=== PATIENT | female | born 1985 | race Caucasian/White ===

== ENCOUNTER 2016-12-17 19:38 | Emergency (ER) | payer MEDICAID ==
[~2016-12-17] VITALS: Ht 157.5 cm; Wt 68.0 kg
[2016-12-17 19:48] VITALS: BP_SYST 124
[2016-12-17] MEDS ORDERED: ALBU8.5H8 INH (20:01)
[2016-12-17 20:20] LABS: BILIRUBIN,URINE NEGATIVE (NEGATIVE); BLOOD, URINE NEGATIVE (NEGATIVE); CLARITY/URINE CLEAR (CLEAR); COLOR,URINE YELLOW (YELLOW); GLUCOSE,URINE NEGATIVE (NEGATIVE); KETONES,URINE NEGATIVE (NEGATIVE); LEUKOCYTE ESTERASE ,URINE 1+ (NEGATIVE); NITRITE, URINE NEGATIVE (NEGATIVE); PROTEIN URINE NEGATIVE (NEGATIVE); UROBILINOGEN,URINE 0.2 (0.2-1.0)
[2016-12-17 20:33] LABS: BACTERIA,URINE FEW /HPF (None Seen); MUCUS,URINE None Seen /LPF (None Seen); RBC,URINE NONE SEEN /HPF (0-3)
[2016-12-17] MEDS ORDERED: NACL 0.9% 1,000 ML IV ONE (20:35)
[2016-12-17] MEDS ORDERED: ONDANSETRON HCL 4 MG/2 ML VIAL IVP ONE (20:45)
[2016-12-17] MEDS ORDERED: MORPHINE 4 MG/ML INJ. SYRINGE IM ONE (20:45)
[2016-12-17 20:59] LABS: BASOPHILS # (AUTO) 0.2 K/uL (0.0-0.2); BASOPHILS % (AUTO) 1.1 % (0.0-2.0); EOSINOPHILS # (AUTO) 0.7 K/uL (0.0-0.4); EOSINOPHILS % (AUTO) 5.1 % (0.0-4.0); HEMATOCRIT 38.2 % (36-48); HEMOGLOBIN 12.8 g/dL (12.0-16.0); LYMPHOCYTES # (AUTO) 2.5 K/uL (1.0-5.5); LYMPHOCYTES % (AUTO) 18.3 % (20.5-51.5); MEAN CORPUSCULAR HEMOGLOBIN 28 pg (27-31); MEAN CORPUSCULAR HGB CONC 33 % (32-36); MEAN CORPUSCULAR VOLUME 85 fL (79.0-98.0); MONOCYTES # (AUTO) 0.7 K/uL (0.0-1.0); MONOCYTES % (AUTO) 4.9 % (1.7-9.3); NEUTROPHILS # (AUTO) 9.6 K/uL (1.8-7.7); NEUTROPHILS % (AUTO) 70.6 % (40.0-70.0); PLATELET COUNT (AUTO) 253 K/uL (130-430); RED CELL DISTRIBUTION WIDTH 13.5 % (9.0-15.0); WHITE BLOOD COUNT (AUTO) 13.7 K/uL (4.8-10.8)
[2016-12-17] MEDS ORDERED: MORPHINE 4 MG/ML INJ. SYRINGE IVP ONE (21:00)
[2016-12-17 21:03] LABS: CALCIUM 8.5 mg/dL (8.4-11.0); CREATININE 0.67 mg/dL (0.55-1.30); POTASSIUM 3.8 mmol/L (3.5-5.1)
[2016-12-17 21:07] LABS: ALBUMIN 3.4 g/dL (3.4-4.8); TOTAL BILIRUBIN 0.3 mg/dL (0.0-1.0); TOTAL PROTEIN, SERUM 6.9 g/dL (6.4-8.3)
[2016-12-17 21:09] LABS: PROTHROMBIN TIME 10.5 SECS (9.5-12.5)
[2016-12-18] MEDS ORDERED: CIPROFLOXACIN HCL 500 MG TABLET PO ONE (00:30)
[2016-12-18 00:54] VITALS: BP_SYST 119
== END 2016-12-18 00:54 | disposition home or self-care (01) ==
LOC: SED 19:38
DX: N83.201 Unspecified ovarian cyst, right side (principal); N39.0 Urinary tract infection, site not specified; J45.909 Unspecified asthma, uncomplicated
CPT/HCPCS: 36415; 76830; 76857; 80053; 81000; 81025; 83690; 85025; 85610; 85730; 87086; 96361; 96374; 96375; 99285; J2270; J2405; J7030; 76856-TC

== ENCOUNTER 2017-04-19 18:59 | Emergency (ER) | payer MEDICAID ==
[~2017-04-19] VITALS: Ht 165.1 cm; Wt 67.1 kg
[~2017-04-19 18:59] MED LIST: ALBU8.5H8 INH
[2017-04-19 19:00] VITALS: BP_SYST 139
[2017-04-19] MEDS ORDERED: NACL 0.9% 1,000 ML IV ONE (19:15)
[2017-04-19] MEDS ORDERED: methylPREDNISolone SOD SUCC/PF 62.5 MG/ML VIAL IVP ONE (19:15)
[2017-04-19] MEDS ORDERED: IPRATROPIUM/ALBUTEROL SULFATE 3 ML AMPUL.NEB INH ONE ×4 (19:15→20:30)
[2017-04-19] MEDS ORDERED: DEXAMETHASONE SOD PHOSPHATE 10 MG/ML VIAL IM ONE (19:15)
[2017-04-19 20:48] VITALS: BP_SYST 130
== END 2017-04-19 20:48 | disposition home or self-care (01) ==
LOC: SED 18:59
DX: J45.901 Unspecified asthma with (acute) exacerbation (principal); R03.0 Elevated blood-pressure reading, without diagnosis of hypertension
CPT/HCPCS: 71010; 81025; 94640; 96361; 96374; 99285; J2930; J7030

== ENCOUNTER 2017-10-03 16:52 | Emergency (ER) | payer MEDICAID ==
[~2017-10-03] VITALS: Ht 165.1 cm; Wt 61.2 kg
[2017-10-03 16:55] VITALS: BP_SYST 123
[2017-10-03] MEDS ORDERED: ALBUTEROL SULFATE 0.083% 2.5 MG/3 ML VIAL.NEB INH ONE ×2 (17:05→17:15)
[2017-10-03] MEDS ORDERED: MAGNESIUM SULFATE 50 ML IV ONE (17:05)
[2017-10-03] MEDS ORDERED: IPRATROPIUM BROM 0.5 MG/2.5 ML VIAL.NEB (ATROVENT) INH ONE ×2 (17:06→17:15)
[2017-10-03] MEDS ORDERED: methylPREDNISolone SOD SUCC/PF 62.5 MG/ML VIAL ONE (17:06)
[2017-10-03] MEDS ORDERED: MAGNESIUM SULFATE 1 GM/2 ML VIAL IVP ONE (17:15)
[2017-10-03] MEDS ORDERED: methylPREDNISolone SOD SUCC/PF 62.5 MG/ML VIAL IVP ONE (17:15)
[2017-10-03] MEDS ORDERED: LevALBUTEROL HCL 1.25 MG/0.5 ML *CONC.* VIAL.NEB (XOPENEX CONC.) INH ONE (18:30)
[2017-10-03 18:55] VITALS: BP_SYST 124
== END 2017-10-03 18:55 | disposition home or self-care (01) ==
LOC: SED 16:52
DX: J45.901 Unspecified asthma with (acute) exacerbation (principal)
CPT/HCPCS: 71045; 81025; 94640; 96365; 96375; 99284; J2930; J3475

== ENCOUNTER 2018-04-18 07:03 | Emergency (ER) | payer MEDICAID ==
[~2018-04-18] VITALS: Ht 165.1 cm; Wt 59.0 kg
[2018-04-18 07:03] VITALS: BP_SYST 122
--- NOTE | 2018-04-18 07:03 | NUR ---
Pt c/o SOB since this AM, audible wheezing, no retractions noted, inhaler non-effective. SPO2 98% RA. Pt states she experiences asthma attacks on average every three months. Triggers of event unknown.
--- NOTE | 2018-04-18 07:03 | NUR ---
Pt placed in bed 6
--- NOTE | 2018-04-18 07:10 | NUR ---
ER at bedside examining patient.
[2018-04-18] MEDS ORDERED: IPRATROPIUM BROM 0.5 MG/2.5 ML VIAL.NEB (ATROVENT) IH ONE (07:15)
[2018-04-18] MEDS ORDERED: ALBUTEROL SULFATE 0.083% 2.5 MG/3 ML VIAL.NEB IH ONE (07:15)
[2018-04-18] MEDS ORDERED: PREDNISONE 20 MG TABLET PO ONE (07:15)
--- NOTE | 2018-04-18 07:15 | NUR ---
RT at bedside.
--- NOTE | 2018-04-18 07:40 | NUR ---
No improvement in SOB or wheezing. Dr. Villanueva made aware.
--- NOTE | 2018-04-18 09:00 | NUR ---
Verbalizes improvement in work of breathing. No needs verbalized at this.
[2018-04-18 10:00] VITALS: BP_SYST 120
--- NOTE | 2018-04-18 10:00 | NUR ---
Patient given written and verbal discharge instructions and verbalizes understanding. ER MD discussed with patient the results and treatment provided. Patient in stable condition. ID arm band removed. Rx of Medrol Dosepak given. Patient educated on pain management and to follow up with PMD. Pain Scale 0/10. Opportunity for questions provided and answered. Medication side effect fact sheet provided.
== END 2018-04-18 10:00 | disposition home or self-care (01) ==
LOC: SED 07:03
DX: J45.909 Unspecified asthma, uncomplicated (principal)
CPT/HCPCS: 94640; 99283; J7512; J7613

== ENCOUNTER 2018-05-27 22:25 | Emergency (ER) | payer MEDICAID ==
[~2018-05-27] VITALS: Ht 162.6 cm; Wt 68.0 kg
[2018-05-27 22:35] VITALS: BP_SYST 129
--- NOTE | 2018-05-27 22:35 | NUR ---
Placed in room 5 . Placed on pulse oximeter. To gown for exam. Side rails up.
--- NOTE | 2018-05-27 22:42 | NUR ---
Patient AOx4, ambulatory, presents to ER with complaint of SOB since [id number] today. Patient has hx of asthma. Patient states cold symptoms x1 week causing exacerbation of her asthma. Patient also states CRUMP and pressure to bilateral eyes. Medicated with Albuterol and Mucinex without relief. No other symptoms or complaints. O2 sat 97% RA on arrival.
--- NOTE | 2018-05-27 22:44 | NUR ---
ER Dr. Jim at bedside examining patient.
--- NOTE | 2018-05-27 22:54 | NUR ---
RT at bedside administering breathing treatment. Pt tolerated well.
--- NOTE | 2018-05-27 22:57 | NUR ---
Medication was given, pt tolerated well. No adverse reaction, will continue to monitor.
[2018-05-27] MEDS ORDERED: PREDNISONE 20 MG TABLET PO ONE (23:00)
[2018-05-27] MEDS ORDERED: LevALBUTEROL HCL 1.25 MG/0.5 ML *CONC.* VIAL.NEB (XOPENEX CONC.) INH ONE ×2 (23:00→23:45)
[2018-05-27] MEDS ORDERED: IPRATROPIUM BROM 0.5 MG/2.5 ML VIAL.NEB (ATROVENT) IH ONE (23:00)
[2018-05-28 00:53] VITALS: BP_SYST 122
--- NOTE | 2018-05-28 00:53 | NUR ---
Patient given written and verbal discharge instructions and verbalizes understanding. ER MD discussed with patient the results and treatment provided. Patient in stable condition. ID arm band removed. Rx of Ventolin and Prednisone given. Patient educated on pain management and to follow up with PMD. Pain Scale 0/10. Opportunity for questions provided and answered. Medication side effect fact sheet provided.
== END 2018-05-28 00:53 | disposition home or self-care (01) ==
LOC: SED 22:25
DX: J45.909 Unspecified asthma, uncomplicated (principal); R03.0 Elevated blood-pressure reading, without diagnosis of hypertension
CPT/HCPCS: 94640; 99284; J7512; J7612

== ENCOUNTER 2018-11-02 16:15 | Emergency (ER) | payer MEDICAID ==
[~2018-11-02] VITALS: Ht 162.6 cm; Wt 78.0 kg
[2018-11-02 16:15] VITALS: BP_SYST 122
[2018-11-02] MEDS ORDERED: NACL 0.9% 1,000 ML IV ONE (17:30)
[2018-11-02] MEDS ORDERED: KETOROLAC TROMETHAMINE 30 MG VIAL IVP ONE (17:30)
[2018-11-02] MEDS ORDERED: ONDANSETRON HCL 4 MG/2 ML VIAL IVP ONE (17:30)
[2018-11-02 19:15] VITALS: BP_SYST 132
== END 2018-11-02 19:15 | disposition home or self-care (01) ==
LOC: SED 16:15
DX: N83.202 Unspecified ovarian cyst, left side (principal); N83.201 Unspecified ovarian cyst, right side; J45.909 Unspecified asthma, uncomplicated; R03.0 Elevated blood-pressure reading, without diagnosis of hypertension
CPT/HCPCS: 76830; 76857; 81002; 81025; 96374; 96375; 99284; J1885; J2405; J7030

== ENCOUNTER 2019-04-27 18:44 | Emergency (ER) | payer MEDICAID ==
[~2019-04-27] VITALS: Ht 162.6 cm; Wt 68.0 kg
[2019-04-27 18:52] VITALS: BP_SYST 152
--- NOTE | 2019-04-27 18:52 | NUR ---
Patient to ER bed 1 to gown for evaluation. Side rails up. RT called for breathing treatment.
[2019-04-27] MEDS ORDERED: IPRATROPIUM/ALBUTEROL SULFATE 3 ML AMPUL.NEB (DUONEB) INH ONE ×2 (19:00→19:30)
[2019-04-27] MEDS ORDERED: IBUPROFEN 600 MG TABLET PO ONE (19:00)
[2019-04-27] MEDS ORDERED: methylPREDNISolone SOD SUCC/PF 62.5 MG/ML VIAL IM ONE ×2 (19:00→20:45)
--- NOTE | 2019-04-27 19:00 | NUR ---
Pt c/o SOB with Chest Pain and headache with sudden onset prior to arrival. BBS diminished with expiratory wheezing and increased work of breathing noted. SPO2 87% RA. Dr. Cm aware.
--- NOTE | 2019-04-27 19:02 | NUR ---
Dr. Cm at bedside.
--- NOTE | 2019-04-27 19:10 | NUR ---
RT at bedside to give neb tx.
--- NOTE | 2019-04-27 19:15 | NUR ---
Unable to access pyxis to obtain medications for pt. Medication to be retrieved from another pyxis.
--- NOTE | 2019-04-27 19:35 | NUR ---
RT at bedside to give second neb tx.
--- NOTE | 2019-04-27 20:30 | NUR ---
Medication received from rn house supervisor.
[2019-04-27] MEDS ORDERED: methylPREDNISolone SOD SUCC/PF 62.5 MG/ML VIAL ONE (20:41)
[2019-04-27] MEDS ORDERED: IBUPROFEN 600 MG TABLET ONE (20:42)
--- NOTE | 2019-04-27 20:50 | NUR ---
Improvement to work of breathing and BBS. No respiratory distress. SPO2 98% RA.
[2019-04-27 21:05] VITALS: BP_SYST 111
--- NOTE | 2019-04-27 21:05 | NUR ---
Patient given written and verbal discharge instructions and verbalizes understanding. ER MD discussed with patient the results and treatment provided. Patient in stable condition. ID arm band removed. Rx of Zithromax, Prednisone, Albuterol given. Patient educated on pain management and to follow up with PMD. Pain Scale 1/10. Opportunity for questions provided and answered. Medication side effect fact sheet provided.
== END 2019-04-27 21:05 | disposition home or self-care (01) ==
LOC: SED 18:44
DX: J45.901 Unspecified asthma with (acute) exacerbation (principal)
CPT/HCPCS: 93005; 94640; 96372; 99284; J2930; J7620

== ENCOUNTER 2019-07-03 23:06 | Emergency (ER) | payer MEDICAID ==
[~2019-07-03] VITALS: Ht 162.6 cm; Wt 68.0 kg
[2019-07-03 23:10] VITALS: BP_SYST 114
--- NOTE | 2019-07-03 23:20 | NUR ---
Placed in room 7 . Placed on baker test, blood pressure machine and pulse oximeter. To gown for exam. Side rails up. Report given to Kumar RODRIGUEZ.
--- NOTE | 2019-07-03 23:22 | NUR ---
34 y/o female presents to Ed w/ c/o SOB. Pt has Hx of asthma, states she used her inhaler today with no relief. Pt denies any fever, N/V, chills, bodyaches. Pt states pain of 5/10 in chest d/t difficulty breathing. Will continue to monitor.
--- NOTE | 2019-07-03 23:25 | NUR ---
ER at bedside examining patient.
[2019-07-03] MEDS ORDERED: ALBUTEROL SULFATE 0.083% 2.5 MG/3 ML VIAL.NEB INH ONE (23:30)
[2019-07-03] MEDS ORDERED: IPRATROPIUM BROM 0.5 MG/2.5 ML VIAL.NEB (ATROVENT) INH ONE (23:30)
[2019-07-03] MEDS ORDERED: PREDNISONE 20 MG TABLET PO ONE (23:30)
[2019-07-04] MEDS ORDERED: ALBUTEROL SULFATE 0.083% 2.5 MG/3 ML VIAL.NEB INH ONE (00:15)
[2019-07-04] MEDS ORDERED: IPRATROPIUM BROM 0.5 MG/2.5 ML VIAL.NEB (ATROVENT) INH ONE (00:15)
[2019-07-04] MEDS ORDERED: KETOROLAC TROMETHAMINE 60 MG/2 ML VIAL IM ONE (00:30)
--- NOTE | 2019-07-04 00:46 | NUR ---
Urine HCG done, results NEGATIVE.
[2019-07-04 00:58] VITALS: BP_SYST 124
--- NOTE | 2019-07-04 00:58 | NUR ---
Patient given written and verbal discharge instructions and verbalizes understanding. ER MD discussed with patient the results and treatment provided. Patient in stable condition. ID arm band removed. IV catheter removed intact and dressing applied, no active bleeding. Rx of Albuterol, Prednisone, and Motrin given. Patient educated on pain management and to follow up with PMD. Pain Scale 0/10. Opportunity for questions provided and answered. Medication side effect fact sheet provided.
== END 2019-07-04 00:58 | disposition home or self-care (01) ==
LOC: SED 23:06
DX: J45.909 Unspecified asthma, uncomplicated (principal); N80.9 Endometriosis, unspecified
CPT/HCPCS: 81025; 94640 ×2; 96372; 99284; J1885; J7512; J7613 ×2

== ENCOUNTER 2019-07-31 21:29 | Emergency (ER) | payer MEDICAID ==
[~2019-07-31] VITALS: Ht 152.4 cm; Wt 68.0 kg
[2019-07-31 21:35] VITALS: BP_SYST 120
[2019-07-31] MEDS: IPRATROPIUM BROM 0.5 MG/2.5 ML VIAL.NEB (ATROVENT) INH ONE (23:40)
[2019-07-31] MEDS: LevALBUTEROL HCL 1.25 MG/0.5 ML *CONC.* VIAL.NEB (XOPENEX CONC.) INH ONE (23:40)
[2019-07-31] MEDS ORDERED: MAGNESIUM SULFATE 1 GM/2 ML VIAL ONE (23:53)
[2019-07-31] MEDS: methylPREDNISolone SOD SUCC/PF 62.5 MG/ML VIAL IVP ONE (23:54)
[2019-07-31] MEDS: MAGNESIUM SULFATE 1 GM in NS 50 ML IV ONE (23:55)
[2019-07-31] MEDS: NACL 0.9% 1,000 ML IV ONE (23:56)
[2019-08-01] MEDS: LevALBUTEROL HCL 1.25 MG/0.5 ML *CONC.* VIAL.NEB (XOPENEX CONC.) INH ONE (00:35)
[2019-08-01 00:37] LABS: HEMOGLOBIN 14.1 g/dL (12.0-16.0); MEAN CORPUSCULAR HEMOGLOBIN 28 pg (27-31); MEAN CORPUSCULAR HGB CONC 33 % (32-36); MEAN CORPUSCULAR VOLUME 87 fL (79.0-98.0); PLATELET COUNT (AUTO) 325 K/uL (130-430); RED BLOOD CELL COUNT(AUTO) 4.96 MIL/uL (4.2-6.2); RED CELL DISTRIBUTION WIDTH 14.2 % (9.0-15.0); WHITE BLOOD COUNT (AUTO) 13.3 K/uL (4.8-10.8)
[2019-08-01 00:54] LABS: CALCIUM 8.9 mg/dL (8.4-11.0); CREATININE 0.67 mg/dL (0.55-1.30); POTASSIUM 3.8 mmol/L (3.5-5.1)
[2019-08-01 00:59] LABS: ALBUMIN 3.9 g/dL (3.4-4.8); TOTAL BILIRUBIN 0.2 mg/dL (0.0-1.0)
[2019-08-01 01:11] LABS: ATYPICAL LYMPHOCYTES % 0 % (0-0); BAND % (MANUAL) 1 % (0-6); LYMPHOCYTES % (MANUAL) 21 % (20-46); MONOCYTES % (MANUAL) 7 % (0-11)
[2019-08-01 01:12] LABS: BASOPHILS % (MANUAL) 0 % (0-2); EOSINOPHILS % (MANUAL) 16 % (0-7); METAMYELOCYTES % 0 % (0-0)
[2019-08-01 01:47] LABS: BILIRUBIN,URINE NEGATIVE (NEGATIVE); BLOOD, URINE NEGATIVE (NEGATIVE); CLARITY/URINE CLEAR (CLEAR); COLOR,URINE YELLOW (YELLOW); GLUCOSE,URINE NEGATIVE (NEGATIVE); KETONES,URINE NEGATIVE (NEGATIVE); LEUKOCYTE ESTERASE ,URINE TRACE (NEGATIVE); NITRITE, URINE NEGATIVE (NEGATIVE); PROTEIN URINE NEGATIVE (NEGATIVE); UROBILINOGEN,URINE 0.2 (0.2-1.0)
[2019-08-01 01:55] LABS: BACTERIA,URINE FEW /HPF (None Seen); RBC,URINE 0-3 /HPF (0-3); WBC,URINE 0-3 /HPF (0-3)
[2019-08-01 02:01] VITALS: BP_SYST 118
== END 2019-08-01 02:01 | disposition home or self-care (01) ==
LOC: SED 21:29
DX: J45.901 Unspecified asthma with (acute) exacerbation (principal)
CPT/HCPCS: 36415; 71046; 80053; 81000; 83690; 85007; 85027; 94640 ×2; 96365; 96375; 99284; J2930; J3475; J7030; J7612 ×2

== ENCOUNTER 2020-02-17 20:16 | Emergency (ER) | payer MEDICAID ==
[~2020-02-17] VITALS: Ht 162.6 cm; Wt 77.1 kg
[2020-02-17 20:25] VITALS: BP_SYST 116
[2020-02-17] MEDS ORDERED: methylPREDNISolone SOD SUCC/PF 62.5 MG/ML VIAL IM ONE (20:45)
[2020-02-17] MEDS ORDERED: IPRATROPIUM/ALBUTEROL SULFATE 3 ML AMPUL.NEB (DUONEB) INH ONE ×2 (20:45→21:00)
[2020-02-17] MEDS ORDERED: IPRATROPIUM/ALBUTEROL SULFATE 3 ML AMPUL.NEB (DUONEB) ONE (21:11)
[2020-02-17] MEDS ORDERED: ALBUTEROL SULFATE 0.083% 2.5 MG/3 ML VIAL.NEB INH ONE (21:15)
[2020-02-17] MEDS ORDERED: BUDESONIDE 0.5 MG/2 ML AMPUL.NEB INH ONE (21:15)
[2020-02-17 22:32] VITALS: BP_SYST 116
== END 2020-02-17 22:32 | disposition home or self-care (01) ==
LOC: SED 20:16
DX: J45.901 Unspecified asthma with (acute) exacerbation (principal)
CPT/HCPCS: 94640; 96372; 99285; J2930; J7613; J7626

== ENCOUNTER 2020-05-16 14:03 | Emergency (ER) | payer MEDICAID ==
[~2020-05-16] VITALS: Ht 162.6 cm; Wt 72.6 kg
[2020-05-16 14:19] VITALS: BP_SYST 125
--- NOTE | 2020-05-16 14:30 | NUR ---
Pt walked in to ER with c/o SOB and wheezing. Reports h/o asthma. O2 sat 92% on RA. V/S stable, pt is afebrile. Currently resting in bed, will continue to monitor.
--- NOTE | 2020-05-16 14:30 | NUR ---
AMBULATED TO BED 4
--- NOTE | 2020-05-16 14:35 | NUR ---
ER Dr. Mcneill at bedside examining patient.
--- NOTE | 2020-05-16 14:35 | NUR ---
Nasal swab obtained to r/o covid, Sample sent to lab, pt tolerated well.
[2020-05-16] MEDS ORDERED: IPRATROPIUM/ALBUTEROL SULFATE 3 ML AMPUL.NEB (DUONEB) ONE (14:38)
[2020-05-16] MEDS ORDERED: methylPREDNISolone SOD SUCC/PF 62.5 MG/ML VIAL IM ONE (14:45)
[2020-05-16] MEDS ORDERED: IPRATROPIUM/ALBUTEROL SULFATE 3 ML AMPUL.NEB (DUONEB) INH ONE ×3 (14:45→15:30)
--- NOTE | 2020-05-16 14:55 | NUR ---
Respiratory at bedside for breathing treatment
[2020-05-16 16:22] VITALS: BP_SYST 124
--- NOTE | 2020-05-16 16:23 | NUR ---
Patient given written and verbal discharge instructions and verbalizes understanding. ER MD discussed with patient the results and treatment provided. Patient in stable condition. ID arm band removed. Rx of ALBUTEROL & PREDNISONE given. Patient educated on pain management and to follow up with PMD. Pain Scale 0/10 . Opportunity for questions provided and answered. Medication side effect fact sheet provided.
== END 2020-05-16 16:22 | disposition home or self-care (01) ==
LOC: SED 14:03
DX: J45.901 Unspecified asthma with (acute) exacerbation (principal); Z20.828 Contact with and (suspected) exposure to other viral communicable diseases
CPT/HCPCS: 36415; 94640; 96372; 99285; J2930

== ENCOUNTER 2020-09-07 20:57 | Emergency (ER) | payer MEDICAID, SELFPAY ==
[~2020-09-07] VITALS: Ht 162.6 cm; Wt 76.2 kg
[2020-09-07 21:10] VITALS: BP_SYST 152
--- NOTE | 2020-09-07 21:26 | NUR ---
Seen and examined by Dr. MCKEON, ER Attending
[2020-09-07] MEDS ORDERED: MECLIZINE HCL 25 MG TABLET (ANITVERT) PO ONE (21:30)
[2020-09-07] MEDS ORDERED: METOCLOPRAMIDE HCL 10 MG/2 ML VIAL IVP ONE (21:30)
--- NOTE | 2020-09-07 21:32 | NUR ---
Pt ambulatory to bed 8 for evaluation
--- NOTE | 2020-09-07 21:33 | NUR ---
Came in ER this 35 year old female ambulatory, AAOX4, breathig spontaneously at room air, not in distress noted. With chief complaints of dizziness and headache today, medically and surgically free. no known allergy. initial vital signs stable
--- NOTE | 2020-09-07 21:45 | NUR ---
# 20 gauge angiocath placed to left hand. Use of asceptic technique. Opsite placed over site. Blood return noted. Flushed with 10 cc of normal saline. No evidence of infiltration noted. Patient tolerated well.
[2020-09-07 21:50] LABS: BASOPHILS # (AUTO) 0.1 K/uL (0.0-0.2); BASOPHILS % (AUTO) 0.5 % (0.0-2.0); EOSINOPHILS # (AUTO) 0.7 K/uL (0.0-0.4); EOSINOPHILS % (AUTO) 7.2 % (0.0-4.0); HEMATOCRIT 39.5 % (36-48); HEMOGLOBIN 13.1 g/dL (12.0-16.0); LYMPHOCYTES # (AUTO) 3.7 K/uL (1.0-5.5); LYMPHOCYTES % (AUTO) 36.8 % (20.5-51.5); MEAN CORPUSCULAR HEMOGLOBIN 28 pg (27-31); MEAN CORPUSCULAR HGB CONC 33 % (32-36); MEAN CORPUSCULAR VOLUME 86 fL (79.0-98.0); MONOCYTES # (AUTO) 0.7 K/uL (0.0-1.0); MONOCYTES % (AUTO) 7.1 % (1.7-9.3); NEUTROPHILS # (AUTO) 4.8 K/uL (1.8-7.7); NEUTROPHILS % (AUTO) 48.4 % (40.0-70.0); PLATELET COUNT (AUTO) 288 K/uL (130-430); RED BLOOD CELL COUNT(AUTO) 4.59 MIL/uL (4.2-6.2); RED CELL DISTRIBUTION WIDTH 13.9 % (9.0-15.0); WHITE BLOOD COUNT (AUTO) 9.9 K/uL (4.8-10.8)
[2020-09-07 21:50] LABS: BILIRUBIN,URINE NEGATIVE (NEGATIVE); BLOOD, URINE 2+ (NEGATIVE); COLOR,URINE YELLOW (YELLOW); GLUCOSE,URINE NEGATIVE (NEGATIVE); KETONES,URINE NEGATIVE (NEGATIVE); LEUKOCYTE ESTERASE ,URINE 3+ (NEGATIVE); NITRITE, URINE NEGATIVE (NEGATIVE); PROTEIN URINE NEGATIVE (NEGATIVE); UROBILINOGEN,URINE 0.2 (0.2-1.0)
[2020-09-07 22:06] LABS: CALCIUM 8.9 mg/dL (8.4-11.0); CREATININE 0.66 mg/dL (0.55-1.30); POTASSIUM 3.4 mmol/L (3.5-5.1)
--- NOTE | 2020-09-07 22:08 | NUR ---
To CT Scan department per wheelchair in stable condition
[2020-09-07 22:09] LABS: PROTHROMBIN TIME 10.3 SECS (9.5-12.5)
[2020-09-07 22:09] LABS: CLARITY/URINE HAZY (CLEAR)
--- NOTE | 2020-09-07 22:21 | NUR ---
Back to room, kept comfortable
[2020-09-07 22:28] LABS: ALBUMIN 3.7 g/dL (3.4-4.8); TOTAL BILIRUBIN 0.2 mg/dL (0.0-1.0)
[2020-09-07 22:50] LABS: WBC,URINE 20-50 /HPF (0-3)
[2020-09-07 22:51] LABS: BACTERIA,URINE FEW /HPF (None Seen)
[2020-09-07] MEDS ORDERED: MECL-97 PO (23:18)
--- NOTE | 2020-09-07 23:25 | NUR ---
Re-assesed by Dr. Rubio, blood works, Ct scan, chest xray reviewed, for discharge
[2020-09-07 23:53] VITALS: BP_SYST 112
--- NOTE | 2020-09-07 23:53 | NUR ---
Patient given written and verbal discharge instructions and verbalizes understanding. ER MD discussed with patient the results and treatment provided. Patient in stable condition. ID arm band removed. IV catheter removed intact and dressing applied, no active bleeding. Rx of given. Patient educated on pain management and to follow up with PMD. Pain Scale 0/10. Opportunity for questions provided and answered. Medication side effect fact sheet provided.
== END 2020-09-07 23:53 | disposition home or self-care (01) ==
LOC: SED 20:57
DX: R42 Dizziness and giddiness (principal); J45.909 Unspecified asthma, uncomplicated; Z86.2 Personal history of diseases of the blood and blood-forming organs and certain disorders involving the immune mechanism
CPT/HCPCS: 36415; 70450; 71045; 76376; 80053; 81000; 81025; 84484; 85025; 85610; 85730; 87086; 93005; 96374; 99285; J2765; J8597

== ENCOUNTER 2021-01-29 10:39 | Emergency (ER) | payer MEDICAID, SELFPAY ==
[~2021-01-29] VITALS: Ht 162.6 cm; Wt 77.1 kg
[~2021-01-29 10:39] MED LIST changes: +MECL-103 PO
[2021-01-29 10:40] VITALS: BP_SYST 103
[2021-01-29 12:52] LABS: BASOPHILS # (AUTO) 0.1 K/uL (0.0-0.2); BASOPHILS % (AUTO) 0.6 % (0.0-2.0); EOSINOPHILS # (AUTO) 1.1 K/uL (0.0-0.4); EOSINOPHILS % (AUTO) 10.3 % (0.0-4.0); HEMATOCRIT 40.1 % (36-48); HEMOGLOBIN 13.7 g/dL (12.0-16.0); LYMPHOCYTES # (AUTO) 2.7 K/uL (1.0-5.5); LYMPHOCYTES % (AUTO) 24.4 % (20.5-51.5); MEAN CORPUSCULAR HEMOGLOBIN 30 pg (27-31); MEAN CORPUSCULAR HGB CONC 34 % (32-36); MEAN CORPUSCULAR VOLUME 88 fL (79.0-98.0); MONOCYTES # (AUTO) 0.5 K/uL (0.0-1.0); MONOCYTES % (AUTO) 4.5 % (1.7-9.3); NEUTROPHILS # (AUTO) 6.7 K/uL (1.8-7.7); NEUTROPHILS % (AUTO) 60.2 % (40.0-70.0); PLATELET COUNT (AUTO) 255 K/uL (130-430); RED BLOOD CELL COUNT(AUTO) 4.56 MIL/uL (4.2-6.2); RED CELL DISTRIBUTION WIDTH 12.6 % (9.0-15.0); WHITE BLOOD COUNT (AUTO) 11.1 K/uL (4.8-10.8)
[2021-01-29 13:07] LABS: CALCIUM 9.1 mg/dL (8.4-11.0); CREATININE 0.65 mg/dL (0.55-1.30); POTASSIUM 3.6 mmol/L (3.5-5.1)
[2021-01-29 13:18] LABS: ALBUMIN 3.5 g/dL (3.4-4.8); TOTAL BILIRUBIN 0.3 mg/dL (0.0-1.0)
== END 2021-01-29 14:35 | disposition home or self-care (01) ==
LOC: SED 10:39
DX: O26.891 Other specified pregnancy related conditions, first trimester (principal); R10.32 Left lower quadrant pain; J45.909 Unspecified asthma, uncomplicated; Z3A.01 Less than 8 weeks gestation of pregnancy; Z79.899 Other long term (current) drug therapy
CPT/HCPCS: 36415; 76805-TC; 80053; 84702; 85025; 99284

== ENCOUNTER 2021-02-19 14:27 | Emergency (ER) | payer MEDICAID ==
[~2021-02-19] VITALS: Ht 162.6 cm; Wt 72.6 kg
[2021-02-19 14:40] VITALS: BP_SYST 109
[2021-02-19] MEDS ORDERED: ONDANSETRON HCL 4 MG/2 ML VIAL IVP ONE (14:45)
[2021-02-19] MEDS ORDERED: NACL 0.9% 1,000 ML IV ONE (14:45)
--- NOTE | 2021-02-19 14:46 | NUR ---
CARRILLO Vergara examining THE patient.
--- NOTE | 2021-02-19 14:46 | NUR ---
KENDALL AND SKED TO WAIT IN THE WAITING ROOM
--- NOTE | 2021-02-19 15:21 | NUR ---
Patient to ER bed 8 to gown for evaluation. Side rails up. Report given to JOLLY RODRIGUEZ.
--- NOTE | 2021-02-19 15:26 | NUR ---
PT IS CURRENTLY IN US
--- NOTE | 2021-02-19 15:30 | NUR ---
Pt walked in to ER with c/o vaginal bleeding x1 day. Reports being approx 8 weeks . Denies any n/v, pain or cramping. V/S stable, no acute distress noted.
[2021-02-19 16:32] LABS: BASOPHILS % (AUTO) 0.4 % (0.0-2.0); EOSINOPHILS # (AUTO) 0.8 K/uL (0.0-0.4); EOSINOPHILS % (AUTO) 7.6 % (0.0-4.0); HEMOGLOBIN 13.8 g/dL (12.0-16.0); LYMPHOCYTES # (AUTO) 2.2 K/uL (1.0-5.5); LYMPHOCYTES % (AUTO) 21.3 % (20.5-51.5); MEAN CORPUSCULAR HEMOGLOBIN 30 pg (27-31); MEAN CORPUSCULAR HGB CONC 34 % (32-36); MEAN CORPUSCULAR VOLUME 87 fL (79.0-98.0); MONOCYTES # (AUTO) 0.7 K/uL (0.0-1.0); MONOCYTES % (AUTO) 6.3 % (1.7-9.3); NEUTROPHILS # (AUTO) 6.7 K/uL (1.8-7.7); NEUTROPHILS % (AUTO) 64.4 % (40.0-70.0); PLATELET COUNT (AUTO) 284 K/uL (130-430); RED CELL DISTRIBUTION WIDTH 12.2 % (9.0-15.0); WHITE BLOOD COUNT (AUTO) 10.5 K/uL (4.8-10.8)
[2021-02-19 16:38] LABS: CREATININE 0.78 mg/dL (0.55-1.30); POTASSIUM 3.7 mmol/L (3.5-5.1)
--- NOTE | 2021-02-19 17:03 | NUR ---
Patient given written and verbal discharge instructions and verbalizes understanding. ER MD discussed with patient the results and treatment provided. Patient in stable condition. ID arm band removed. IV catheter removed intact and dressing applied, no active bleeding. No prescriptions given. Patient educated on pain management and to follow up with PMD. Pain Scale 0. Opportunity for questions provided and answered. Medication side effect fact sheet provided.
[2021-02-19 17:04] VITALS: BP_SYST 109
[2021-02-19 17:04] LABS: ALBUMIN 3.3 g/dL (3.4-4.8); TOTAL BILIRUBIN 0.2 mg/dL (0.0-1.0)
[2021-02-19 17:09] LABS: BILIRUBIN,URINE NEGATIVE (NEGATIVE); BLOOD, URINE 3+ (NEGATIVE); CLARITY/URINE CLEAR (CLEAR); COLOR,URINE YELLOW (YELLOW); GLUCOSE,URINE NEGATIVE (NEGATIVE); KETONES,URINE TRACE (NEGATIVE); LEUKOCYTE ESTERASE ,URINE 1+ (NEGATIVE); NITRITE, URINE NEGATIVE (NEGATIVE); PROTEIN URINE NEGATIVE (NEGATIVE)
[2021-02-19 17:17] LABS: BACTERIA,URINE FEW /HPF (None Seen); MUCUS,URINE None Seen /LPF (None Seen)
[2021-02-19 17:18] LABS: CALCIUM OXALATE CRYSTALS,UR 0-10 /HPF (None Seen)
== END 2021-02-19 17:03 | disposition home or self-care (01) ==
LOC: SED 14:27
DX: O20.9 Hemorrhage in early pregnancy, unspecified (principal); J45.909 Unspecified asthma, uncomplicated; Z79.899 Other long term (current) drug therapy; Z3A.01 Less than 8 weeks gestation of pregnancy
CPT/HCPCS: 36415; 76801; 76817; 80053; 81000; 84702; 85025; 87086; 96361; 96374; 99284; J2405; J7030

== ENCOUNTER 2021-05-21 22:56 | Emergency (ER) | payer MEDICAID ==
[~2021-05-21] VITALS: Ht 165.1 cm; Wt 90.7 kg
--- NOTE | 2021-05-21 23:00 | NUR ---
Dr. Henderson at bedside.
[2021-05-21 23:02] VITALS: BP_SYST 120
--- NOTE | 2021-05-21 23:04 | NUR ---
Patient to ER bed H2 to gown for evaluation. Side rails up. RT notified Report given to Madyson RODRIGUEZ
[2021-05-21] MEDS ORDERED: IPRATROPIUM/ALBUTEROL SULFATE 3 ML AMPUL.NEB (DUONEB) INH ONE (23:30)
[2021-05-21] MEDS ORDERED: predniSONE 20 MG TABLET PO ONE (23:30)
--- NOTE | 2021-05-21 23:34 | NUR ---
Breathing treatment done by RT
--- NOTE | 2021-05-22 01:01 | NUR ---
PT LYING IN BED WITH EYES CLOSED, APPEARS TO BE ASLEEP. EQUAL RISE AND FALL OF CHEST. O2 SAT 97% ON ROOM AIR. NO ACUTE DISTRESS AT THIS TIME. WILL COTINUE TO MONITOR.
[2021-05-22] MEDS ORDERED: PRED20TA PO (01:35)
[2021-05-22] MEDS ORDERED: ALBMDI INH (01:35)
[2021-05-22] MEDS ORDERED: ALBU2.5V7 INH (01:35)
[2021-05-22 02:00] VITALS: BP_SYST 122
--- NOTE | 2021-05-22 02:00 | NUR ---
Patient given written and verbal discharge instructions and verbalizes understanding. ER MD discussed with patient the results and treatment provided. Patient in stable condition. ID arm band removed. Rx of Albuterol MDI, Albuterol Sulfate, and Prednisone sent electronically to preferred pharmacy. Patient educated on pain management and to follow up with PMD. Pain Scale 0/10. Opportunity for questions provided and answered. Medication side effect fact sheet provided.
== END 2021-05-22 02:00 | disposition home or self-care (01) ==
LOC: SED 22:56
DX: O99.512 Diseases of the respiratory system complicating pregnancy, second trimester (principal); J45.901 Unspecified asthma with (acute) exacerbation; Z3A.20 20 weeks gestation of pregnancy; Z79.899 Other long term (current) drug therapy
CPT/HCPCS: 94640; 99283; J7512